=== PATIENT | male | born 1965 | race Caucasian/White ===

== ENCOUNTER 2025-08-02 00:13 | Emergency (ER) | payer OTHER, SELFPAY ==
[2025-08-02] VITALS (8 sets, daily range): BP systolic 104–148; BP diastolic 54–89; PULSE 93–99; BMI 29.7
[2025-08-02 00:37] LABS: Hematocrit 47.4 % (39.0-52.0); Hemoglobin 16.1 g/dL (13.0-18.0); Mean Corp Hgb Conc. 34.0 g/dL (33.0-37.0); Mean Corpuscular Volume 89.3 fL (80.0-94.0); Nucleated Red Blood Cells % 0 % (-); Platelet Count 238 10^3/uL (130-400); Red Cell Dist. Width 12.5 % (11.5-14.5)
--- NOTE | 2025-08-02 00:38 | ED.GENMED ---
History of Present Illness
<Bruce Amor DO - Last Filed: 08/02/25 00:38>
General
Chief Complaint: Seizure
Source: patient and ambulance crew
Exam Limitations: none
Time Seen by Provider: 08/02/25 00:27
<Glendy Nino PA-C - Last Filed: 08/02/25 05:57>
History of Present Illness
History of Present Illness:
see MDM
Review of Systems
<Glendy Nino PA-C - Last Filed: 08/02/25 05:57>
Review of Systems
Allergies reviewed?: Yes
All Other Systems: Not applicable
Phy Exam
<Glendy Nino PA-C - Last Filed: 08/02/25 05:57>
Physical Exam
Physical Exam:
see BELOW
Course
<Bruce Amor DO - Last Filed: 08/02/25 00:38>
Orders/Labs/Results
Orders:
Orders
08/02/25 00:23
Alcohol Urgent
Complete Blood Count/With Diff Urgent
Comprehensive Metabolic Panel Urgent
Tegretol (Carbamazepine) Urgent
Comment: ADD ON
08/02/25 00:25
EKG [Electrocardiogram (*1)] Urgent
Reason for Study: Other
Other Reason for Exam: seizure?
EKG- Treatment ONCE
08/02/25 01:08
Add On- LAB Urgent
Tests Added?: alcohol
0.9% Sodium Chloride 1000 ml [Nss] 1,000 ml IV BOLUS
08/02/25 01:09
CT Head W/o Iv Contrast Urgent
Comment:
Reason For Exam: syncope vs. seizure, h/o cva L weakness
08/02/25 01:10
Orthostatic VS- Treatment ONCE
08/02/25 01:13
Add On- LAB Urgent
Comments:: add on
Tests Added?: tegretol
08/02/25 01:31
Lacosamide [Vimpat] 200 mg PO NOW STA
Levetiracetam [Keppra] 2,000 mg PO NOW STA
Abnormal Lab Results
08/02/25
00:23
Glucose 104 H mg/dl
(70-99)
Carbamazepine < 3.0 L ug/ml
(4-12)
08/02/25 00:23
08/02/25 00:23
Vital Signs
Initial and Last Documented VS:
Initial Vital Signs
Temp
36.6 C
08/02/25 00:17
Last Documented Vital Signs
Temp Pulse Resp BP Pulse Ox
36.6 C 90 104/54 92
08/02/25 00:17 08/02/25 04:15 08/02/25 04:15 08/02/25 04:15 08/02/25 03:45
<Glendy Nino PA-C - Last Filed: 08/02/25 05:57>
Orders/Labs/Results
Orders:
Orders
08/02/25 00:23
Alcohol Urgent
Complete Blood Count/With Diff Urgent
Comprehensive Metabolic Panel Urgent
Tegretol (Carbamazepine) Urgent
Comment: ADD ON
08/02/25 00:25
EKG [Electrocardiogram (*1)] Urgent
Reason for Study: Other
Other Reason for Exam: seizure?
EKG- Treatment ONCE
08/02/25 01:08
Add On- LAB Urgent
Tests Added?: alcohol
0.9% Sodium Chloride 1000 ml [Nss] 1,000 ml IV BOLUS
08/02/25 01:09
CT Head W/o Iv Contrast Urgent
Comment:
Reason For Exam: syncope vs. seizure, h/o cva L weakness
08/02/25 01:10
Orthostatic VS- Treatment ONCE
08/02/25 01:13
Add On- LAB Urgent
Comments:: add on
Tests Added?: tegretol
08/02/25 01:31
Lacosamide [Vimpat] 200 mg PO NOW STA
Levetiracetam [Keppra] 2,000 mg PO NOW STA
Abnormal Lab Results
08/02/25
00:23
Glucose 104 H mg/dl
(70-99)
Carbamazepine < 3.0 L ug/ml
(4-12)
08/02/25 00:23
08/02/25 00:23
Vital Signs
Initial and Last Documented VS:
Initial Vital Signs
Temp
36.6 C
08/02/25 00:17
Last Documented Vital Signs
Temp Pulse Resp BP Pulse Ox
36.6 C 90 25 104/54 92
08/02/25 00:17 08/02/25 04:15 08/02/25 04:15 08/02/25 04:15 08/02/25 03:45
<Glendy Nino PA-C - Last Filed: 08/02/25 05:57>
MDM/Problems Addressed
Differential Diagnosis Includes:
see MDM
MDM/Problems Addressed:
Note:
CHIEF COMPLAINT(S)
Alcohol intake followed by falls and increased weakness in the left leg.
HISTORY OF PRESENT ILLNESS
The patient 60 y/o male with a significant medical history of cerebrovascular accident (CVA) in 1982 requiring surgical intervention and subsequent seizure disorder, presented after consuming alcohol, which he reports he does not usually drink. At
approximately 10:00 PM, after an unspecified amount of alcohol intake, he experienced a fall but did not lose consciousness during the event. He described experiencing increased weakness of the left lower extremity and numbness but noted that the
left upper extremity was not affected, which is atypical for him. The patient also reported an episode of incontinence after the fall. Family members present at the time helped the patient up, and he had a second fall shortly after. Previous
seizures are described as more tonic by nature, unlike his recent experience. He did have mild photophobia earlier in the day, which is unusual for him, but no headache was reported. Additionally, he had a recent upper gastrointestinal infection
resolved about five days ago. No current headache, cranial nerve deficits, or loss of consciousness were reported.
PAST MEDICAL AND SURGICAL HISTORY
- Cerebrovascular accident in 1982 with surgical intervention.
- Seizure disorder since tapering off medication post-CVA, history of one significant seizure since then.
SOCIAL [employer]ERMINANTS AFFECTING HEALTH
Patient does not typically drink alcohol, confirming this is an isolated incident. No reported use of benzodiazepines.
MEDICATIONS
- VIMPAT 200 mg twice daily
- Tegretol (Carbamazepine) 200 mg twice daily
.
REVIEW OF SYSTEMS
- Neurologic: Increased weakness and numbness in left lower extremity, photophobia without headache.
- Gastrointestinal: Resolved upper gastrointestinal infection approximately five days ago.
- General: No loss of consciousness reported.
PHYSICAL EXAM
- GENERAL: Alert , in no apparent distress
HEAD: NCAT
EYE: pupils equal and reactive, no nystagmus, no photophobia
NECK: Supple,full rom, nontender
ENT: o/p clr, mmm.
CARDIAC: Regular rate and rhythm . no edema
LUNGS: Clear breath sounds bilaterally, no acute respiratory distress, no wheezes/rales/rhonchi
ABDOMEN: Soft, without focal tenderness, no r/g, no cvat
NEUROLOGICAL: Alert and orientedx 4,, slight left-sided facial weakness, otherwise intact cranial nerves, left hemiparesis upper extremity, distal left lower extremity weak, 2 out of 5, more proximal strength 4 out of 5, right leg 5 out of 5, right
arm 5 out of 5, sensation intact, romberg neg, ambulates without assistance, slow, neg pronator drift
SKIN: Warm and dry, skin intact.
MUSCULOSKELETAL: No edema, well perfused.
PSYCH: Normal and appropriate interaction.
- Nursing notes reviewed and vital signs reviewed.
PROBLEM LIST
- Acute: Alcohol-related fall, weakness in the left lower extremity, increased seizure-like activity without loss of consciousness.
- Chronic: History of CVA, seizure disorder.
PLAN
- Administer intravenous fluids.
- Check VIMPAT and Tegretol levels; note that results will not return immediately.
- Perform a head computed tomography scan to rule out acute intracranial abnormalities.
- Administer regular doses of VIMPAT and Tegretol.
- Monitor the patients condition closely after interventions; if stable, assess if discharge is appropriate.
DIFFERENTIAL DIAGNOSIS
The Differential Diagnosis includes, in no particular order and is not limited to:
- Alcohol intoxication
- Seizure activity secondary to medication levels
- Syncope or pre-syncope
- Recurrent cerebrovascular accident
- Peripheral neuropathy
- Transient ischemic attack
- New-onset migraine with atypical aura
- Subdural hematoma
- Orthostatic hypotension due to alcohol
- Hypoglycemia due to alcohol intake
60-year-old male with a history of a previous stroke and left upper extremity paresis and left lower extremity weakness presents after drinking alcohol and having a fall. Patient says he never lost consciousness but felt like his left leg which is
normally more weak than the right was weaker than normal that he went down for. Patient had no injuries. He said he did not lose consciousness. He did have some bowel incontinence which is unusual. He never had any shaking. Patient stood up and
then started to walk again was a little bit too weak to stand so his friends helped him. Patient reports that his previous seizures were tonic-clonic and this is very unlike his previous seizures.
Much more likely than seizure he probably had near syncope or hypotension related to the alcohol intoxication. Patient is pretty much at his baseline though he has a little bit of slurred speech at times and seems mildly intoxicated he can fully
converse with me. His EKG is sinus rhythm without any ST changes. His electrolytes are normal. His alcohol was 265. His head CT shows some chronic findings from his previous stroke but otherwise no new findings. Patient was able to get up and
ambulate to the bathroom several times while here and had no issues. He will be discharged in the care of his family
<Bruce Amor DO - Last Filed: 08/02/25 00:38>
*Pulse Oximetry
SaO2: 95
<Glendy Nino PA-C - Last Filed: 08/02/25 05:57>
*Pulse Oximetry
Patient hypoxic: no (95)
*Critical Care Note
Total Time (30-74mins, 75-104mins- exclusive of procedures): Not Applicable
ED Attending Note
<Bruce Amor DO - Last Filed: 08/02/25 00:38>
-
Portions of this chart may have been created with voice recognition software.� Occasional wrong word or��sound alike� substitutions may have occurred due to the inherent limitations of voice recognition software.
Discharge Plan
Departure
Patient Disposition: Home (Routine Discharge)
Date of Disposition: 08/02/25
Time of Disposition: 04:01
Patient with high blood pressure during this ER visit?: No
Condition: Fair
Covid-19: Not Applicable
Discharge Problem:
Near syncope
Instructions: Near Fainting (DC)
Prescriptions:
No Action
levothyroxine 75 mcg Tablet
75 mcg PO DAILY
irbesartan 75 mg Tablet
75 mg PO DAILY
levetiracetam [Keppra] 1,000 mg Tablet
2,000 mg PO BID
lacosamide [Vimpat] 200 mg Tablet
200 mg PO BID
Referrals:
[facility] [Other]
Activity Restrictions/Additional Instructions:
You could have had a near syncopal episode or a very mild seizure. It was probably triggered by the alcohol. Your CAT scan was stable without any new findings. You have no abnormal concerning blood work. Please make sure to stay hydrated and
avoid excessive alcohol use. Return for any concerns. Otherwise follow-up with your neurologist
Interventions
Interventions:
*Risk Screen - Suicide Last Done: 08/02/25 00:17
*General Assessment Last Done: 08/02/25 00:17
*Neglect/Abuse Screening Last Done: 08/02/25 00:17
*ED- Fall Risk Assessment Last Done: 08/02/25 00:17
*ED COVID-19 Vaccine History Last Done: 08/02/25 00:17
*ED Influenza Vaccine History Last Done: 08/02/25 00:17
*Nursing Disposition Last Done: 08/02/25 04:20
ED- Cardiac Assessment Last Done: 08/02/25 00:17
ED- Neurological Assessment Last Done: 08/02/25 00:17
ED- Pulmonary Assessment Last Done: 08/02/25 00:17
Discharge Date and Time
Discharge Date/Time: 08/02/25 04:23
Print Language: CZECH
[2025-08-02 00:58] LABS: ALT (SGPT) 18 U/L (0-50); AST (SGOT) 24 U/L (17-59); Albumin 4.7 g/dl (3.5-5.0); Alkaline Phosphatase 65 U/L (38-126); Blood Urea Nitrogen 11 mg/dl (9-20); Calcium 9.6 mg/dl (8.4-10.2); Carbon Dioxide 24 mmol/L (22-30); Chloride 102 mmol/L (98-107); Estimated Creatinine Clearance 86 ml/min; Glucose 104 mg/dl (70-99); Potassium 3.8 mmol/L (3.5-5.1); Sodium 138 mmol/L (135-145); Total Protein 7.1 g/dl (6.3-8.2); eGFR > 60.00
[2025-08-02] MEDS: NSS 1000 IV (01:25)
[2025-08-02] MEDS: VIMPAT 200 MG PO (01:44)
[2025-08-02] MEDS: KEPPRA 2000 MG PO (01:44)
== END 2025-08-02 04:23 | disposition home or self-care (01) ==
LOC: EMR 00:13
PROVIDERS: EMERGENCY PHYSICIAN Emergency Medicine
DX: R55 Syncope and collapse (principal); I69.354 Hemiplegia and hemiparesis following cerebral infarction affecting left non-dominant side; G40.909 Epilepsy, unspecified, not intractable, without status epilepticus
CPT/HCPCS: 99284; 96360; 70450; 80053; 80156; 82077; 85025; 93005